=== PATIENT | male | born 1960 | race Caucasian/White ===

== ENCOUNTER → 2016-08-11 | Outpatient (CLI) | payer BC ==
--- NOTE | 2016-08-13 16:17 | REP ---
RIGHT RIBS UNILATERAL WITH PA CHEST: REASON: Contusion and pain. FINDINGS: Five views of the ribs show no acute fracture or destructive osseous lesion. The accompanying frontal view of the chest shows no cardiomegaly, infiltrates, effusions or pneumothoraces. IMPRESSION: Negative rib series. Signed by Aaron Colon DO 08/13/2016 05:12 P
== END ==
LOC: M ADAMS 09:31
PROVIDERS: ATTEND Physician Assistant Medical
DX: S20.221A Contusion of right back wall of thorax, initial encounter (principal); X58.XXXA Exposure to other specified factors, initial encounter; Y92.89 Other specified places as the place of occurrence of the external cause; Y93.89 Activity, other specified; Y99.8 Other external cause status